=== PATIENT | male | born 1960 | race Hispanic/Latino ===

== ENCOUNTER 2017-09-15 00:04 | Emergency (ER) | payer BC, OTHER ==
[2017-09-15] MEDS ORDERED: LIDOCAINE 1% 20 ML MDV ONE (01:19)
--- NOTE | 2017-09-15 02:06 | ER ---
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 pt denies ak1 drainage. pt c/o pain only with palpation. Transition of care: patient was not received from another setting of care. Onset of symptoms is unknown. Risk Assessment: Do you want to hurt yourself or someone else? Patient reports no desire to harm self or others. Initial Sepsis Screen: Does the patient meet any 2 criteria? No. Patient's initial sepsis screen is negative. Does the patient have a suspected source of infection? No. Patient's initial sepsis screen is negative. Care prior to arrival: None. 00:23 Method Of Arrival: Ambulatory ak1 00:23 Acuity: TG 4 ak1 Triage Assessment: 00:28 General: Appears in no apparent distress. Behavior is calm, cooperative. Pain: Denies ak1 pain. EENT: No signs and/or symptoms were reported regarding the EENT system. Neuro: No deficits noted. Cardiovascular: No deficits noted. Respiratory: No deficits noted. GI: No signs and/or symptoms were reported involving the gastrointestinal system. : No signs and/or symptoms were reported regarding the genitourinary system. Derm: Abscess located on right lower quadrant is half dollar sized, has no drainage, is red, is raised. Musculoskeletal: No signs and/or symptoms reported regarding the musculoskeletal system. Historical: - Allergies: 00:28 Aspirin; ak1 - Home Meds: 00:28 lisinopril 5 mg Oral tab 1 tab once daily [Active]; ak1 - PMHx: 00:28 Hypertension; ak1 - PSHx: 00:28 Hernia repair; Appendectomy; skull fx; ak1 - Immunization history:: Adult Immunizations unknown. - Social history:: Smoking status: Patient uses tobacco products, smokes one-half pack cigarettes per day. - Ebola Screening: : No symptoms or risks identified at this time. Screenin:29 Abuse screen: Denies threats or abuse. Denies injuries from another. Nutritional ak1 screening: No deficits noted. Tuberculosis screening: No symptoms or risk factors identified. Fall Risk None identified. Assessment: 00:29 Reassessment: Patient appears in no apparent distress at this time. No changes from ak1 previously documented assessment. Patient is alert, oriented x 3, equal unlabored respirations, skin warm/dry/pink. see triage assessment. 01:00 Reassessment: Patient and/or family updated on plan of care and expected duration. Pain ea level reassessed. Patient is alert, oriented x 3, equal unlabored respirations, skin warm/dry/pink. 02:41 Reassessment: Patient appears in no apparent distress at this time. No changes from ak1 previously documented assessment. Vital Signs: 00:23 BP 165 / 95; Pulse 61; Resp 18; Temp 97.6; Pulse Ox 100% on R/A; Weight 94.35 kg (R); ak1 Height 6 ft. 0 in. (182.88 cm) (R); Pain 0/10; 01:52 BP 128 / 87; Pulse 61; Resp 18; Temp 97.6; Pulse Ox 100% on R/A; ak1 02:39 BP 138 / 91; Pulse 55; Resp 18; Temp 97.6; Pulse Ox 100% on R/A; Pain 3/10; ak1 00:23 Body Mass Index 28.21 (94.35 kg, 182.88 cm) ak1 ED Course: 00:09 Patient arrived in ED. al2 00:09 Aguilar Pabon MD is Private Physician. al2 00:22 Trini Feng, RN is Primary Nurse. ak1 00:24 Triage completed. ak1 00:28 Arm band placed on Patient placed in an exam room, on a stretcher, on pulse oximetry, ak1 Patient notified of wait time. 00:29 Patient has correct armband on for positive identification. Placed in gown. Bed in low ak1 position. Call light in reach. Side rails up X 1. Adult w/ patient. Pulse ox on. NIBP on. 00:44 Chinmay Aguilar NP is PHCP. pm1 00:44 Kevin Ovalle MD is Attending Physician. pm1 01:58 Assist provider with I \T\ D: of an abscess on right right lower abdomen Wound packed. ea iodoform gauze. 02:05 Aguilar Pabon MD is Referral Physician. pm1 02:41 Assist provider with I \T\ D: of an abscess on right lower abd. ak1 02:42 Patient did not have IV access during this emergency room visit. ea Administered Medications: 01:52 Drug: Lidocaine (1 %) 20 ml {Note: administered by provider.} Volume: 20 ml; Route: ea Infiltration; 02:22 Drug: Tylenol #3 (300 mg-30 mg) 1 tablet Route: PO; ea 02:39 Follow up: Response: No adverse reaction ak1 Outcome: 02:05 Discharge ordered by MD. pm1 02:43 Discharged to home ambulatory, with significant other. ea 02:43 Condition: improved 02:43 Discharge instructions given to patient, Instructed on discharge instructions, follow up and referral plans. medication usage, Demonstrated understanding of instructions, follow-up care, medications, Prescriptions given X 2. 02:43 Patient left the ED. ea Signatures: Trini Feng RN RN ak1 Chinmay Aguilar, POST CLOSING SPECIALIST POST CLOSING SPECIALIST pm1 Priya Rojas RN RN ea Love, Angelica al2
--- NOTE | 2017-09-15 02:06 | EDPHYS ---
Physician Documentation [facility] Name: Jorge Diaz Age: 57 yrs Sex: Male : 1960 Arrival Date: 09/15/2017 Time: 00:09 Bed 4 Private MD: Aguilar Pabon ED Physician Kevin Ovalle HPI: 09/15 02:00 This 57 yrs old Male presents to ER via Ambulatory with complaints of abscess pm1 on abdomen. 02:00 The patient presents with an abscess of the right lower quadrant. Description: raised. pm1 Onset: The symptoms/episode began/occurred 1 week(s) ago. Possible cause(s): unknown. Associated signs and symptoms: Pertinent negatives: discharge, drainage, fever. Modifying factors: the symptoms are aggravated by touching. Severity of symptoms: in the emergency department the symptoms are actually worse. The patient has experienced similar episodes in the past, a few times. The patient has not recently seen a physician, the patient's primary care provider is Dr. Pabon. Historical: - Allergies: 00:28 Aspirin; ak1 - Home Meds: 00:28 lisinopril 5 mg Oral tab 1 tab once daily [Active]; ak1 - PMHx: 00:28 Hypertension; ak1 - PSHx: 00:28 Hernia repair; Appendectomy; skull fx; ak1 - Immunization history:: Adult Immunizations unknown. - Social history:: Smoking status: Patient uses tobacco products, smokes one-half pack cigarettes per day. - Ebola Screening: : No symptoms or risks identified at this time. ROS: 02:00 Constitutional: Negative for fever, chills, and weight loss, Cardiovascular: Negative pm1 for chest pain, palpitations, and edema, Respiratory: Negative for shortness of breath, cough, wheezing, and pleuritic chest pain, Abdomen/GI: Negative for abdominal pain, nausea, vomiting, diarrhea, and constipation, Back: Negative for injury and pain, MS/Extremity: Negative for injury and deformity. 02:00 Neuro: Negative for headache, weakness, numbness, tingling, and seizure. 02:00 Skin: Positive for abscess, of the right lower quadrant. Exam: 02:00 Constitutional: This is a well developed, well nourished patient who is awake, alert, pm1 and in no acute distress. Head/Face: Normocephalic, atraumatic. Chest/axilla: Normal chest wall appearance and motion. Nontender with no deformity. No lesions are appreciated. Cardiovascular: Regular rate and rhythm with a normal S1 and S2. No gallops, murmurs, or rubs. Normal PMI, no JVD. No pulse deficits. Respiratory: Lungs have equal breath sounds bilaterally, clear to auscultation and percussion. No rales, rhonchi or wheezes noted. No increased work of breathing, no retractions or nasal flaring. Abdomen/GI: Soft, non-tender, with normal bowel sounds. No distension or tympany. No guarding or rebound. No evidence of tenderness throughout. Back: No spinal tenderness. No costovertebral tenderness. Full range of motion. MS/ Extremity: Pulses equal, no cyanosis. Neurovascular intact. Full, normal range of motion. Neuro: Awake and alert, GCS 15, oriented to person, place, time, and situation. Cranial nerves II-XII grossly intact. Motor strength 5/5 in all extremities. Sensory grossly intact. Cerebellar exam normal. Normal gait. 02:00 Skin: Appearance: normal except for affected area, abscess, that is small, approximately 1 cm(s), of the right lower quadrant, with pointing, No surrounding cellulitis. Vital Signs: 00:23 BP 165 / 95; Pulse 61; Resp 18; Temp 97.6; Pulse Ox 100% on R/A; Weight 94.35 kg (R); ak1 Height 6 ft. 0 in. (182.88 cm) (R); Pain 0/10; 01:52 BP 128 / 87; Pulse 61; Resp 18; Temp 97.6; Pulse Ox 100% on R/A; ak1 02:39 BP 138 / 91; Pulse 55; Resp 18; Temp 97.6; Pulse Ox 100% on R/A; Pain 3/10; ak1 00:23 Body Mass Index 28.21 (94.35 kg, 182.88 cm) ak Procedures: 02:03 I \T\ D: Incision and drainage was performed for an abscess of the right lower quadrant pm1 Prepped with Betadine, Anesthetized with 3 ml's 1% Lidocaine. Incised with #11 blade. Drained small amount serosanguinous fluid. Packed with iodoform gauze, Dressing: sterile 4x4 gauze, non-Adherent dressing, the patient tolerated the procedure well. MDM: 00:44 Patient medically screened. pm1 02:03 Data reviewed: vital signs. Data interpreted: Pulse oximetry: on room air is 100 %. pm1 Interpretation: normal. Counseling: I had a detailed discussion with the patient and/or guardian regarding: the historical points, exam findings, and any diagnostic results supporting the discharge/admit diagnosis, the need for outpatient follow up, wound reevaluation and packing removal, to return to the emergency department if symptoms worsen or persist or if there are any questions or concerns that arise at home. 09/15 01:03 Order name: Incision \T\ Drainage Setup; Complete Time: 01:52 pm1 Administered Medications: :52 Drug: Lidocaine (1 %) 20 ml {Note: administered by provider.} Volume: 20 ml; Route: ea Infiltration; 02:22 Drug: Tylenol #3 (300 mg-30 mg) 1 tablet Route: PO; ea 02:39 Follow up: Response: No adverse reaction ak1 Disposition: 09/15/17 02:05 Discharged to Home. Impression: Cutaneous abscess of abdominal wall. - Condition is Stable. - Discharge Instructions: Abscess, Incision and Drainage. - Prescriptions for Tylenol- Codeine #3 300-30 mg Oral Tablet - take 1 tablet by ORAL route every 6 hours As needed; 15 tablet. Bactrim DS 800- 160 mg Oral Tablet - take 1 tablet by ORAL route every 12 hours for 10 days; 20 tablet. - Work release form, Medication Reconciliation Form, Thank You Letter, Antibiotic Education, Prescription Opioid Use form. - Follow up: Aguilar Pabon MD; When: 2 - 3 days; Reason: Recheck today's complaints, Continuance of care, Re-evaluation by your physician. Follow up: Emergency Department; When: As needed; Reason: Worsening of condition. - Problem is new. - Symptoms have improved. Addendum: 09/18/2017 08:55 Co-signature as Attending Physician, Kevin Ovalle MD I agree with the assessment and w a plan of care. Signatures: Trini Feng RN RN ak1 Chinmay Aguilar, ESTIMATOR AND DRAFTER ESTIMATOR AND DRAFTER pm1 Priya Rojas RN RN ea Appiah, William, MD MD me Corrections: (The following items were deleted from the chart) 09/15 02:43 02:05 09/15/2017 02:05 Discharged to Home. Impression: Cutaneous abscess of abdominal ea wall. Condition is Stable. Forms are Medication Reconciliation Form, Thank You Letter, Antibiotic Education, Prescription Opioid Use. Follow up: Aguilar Pabon; When: 2 - 3 days; Reason: Recheck today's complaints, Continuance of care, Re-evaluation by your physician. Follow up: Emergency Department; When: As needed; Reason: Worsening of condition. Problem is new. Symptoms have improved. pm1
[2017-09-15] MEDS ORDERED: CODEINE 30MG/APAP 300MG TAB ONE (02:19)
[2017-09-15 02:48] VITALS: TEMP 97.6; O2SAT 100
[2017-09-15 02:50] VITALS: BP 138/91
== END 2017-09-15 02:43 | disposition home or self-care (01) ==
LOC: ER 00:04
PROC: 0H97XZZ Drainage of Abdomen Skin, External Approach (ICD-10-PCS; principal; 2017-09-15)
DX: L02.211 Cutaneous abscess of abdominal wall (principal); I10 Essential (primary) hypertension; F17.210 Nicotine dependence, cigarettes, uncomplicated; Z88.6 Allergy status to analgesic agent
CPT/HCPCS: 99284